=== PATIENT | male | born 1960 | race Caucasian/White ===

== ENCOUNTER 2025-01-12 12:11 | Outpatient (CLI) | payer OTHER, SELFPAY ==
--- NOTE | 2025-01-12 12:17 | XR_ITS ---
FINAL REPORT CLINICAL HISTORY: Left Hip Pain COMPARISON: None FINDINGS: 2 AP and frog leg views of the left hip were obtained. There is no acute fracture or dislocation. There is advanced degenerative joint disease of the left hip. Soft tissues are unremarkable. IMPRESSION: Advanced degenerative joint disease of the left hip. Reviewed, Interpreted and Dictated by Karina Ward MD Transcribed by Yara Washington Authenticated and . [facility]
== END 2025-01-12 23:59 | disposition home or self-care (01) ==
PROVIDERS: Visit Provider Physician Assistant Surgical
DX: M16.12 Unilateral primary osteoarthritis, left hip (principal)
CPT/HCPCS: 73502

== ENCOUNTER 2025-01-14 11:45 | Outpatient (CLI) | payer OTHER, SELFPAY ==
--- NOTE | 2025-01-14 12:10 | ECG_ITS ---
APPROVED REPORT Exam: Resting ECG HR:71 bpm ECG Measurements Heart Rate 71 AXES CA 194 P 52 QRSd 72 QRS -3 QT 352 T 40 QTc 374 Conclusion SINUS RHYTHM LOW QRS VOLTAGE IN PRECORDIAL LEADS [QRS DEFLECTION < 1.0 mV IN CHEST LEADS] BORDERLINE ECG UNCONFIRMED REPORT Electronically signed by : Quang Grajeda MD 01/15/2025 08:35:34
== END 2025-01-14 23:59 | disposition home or self-care (01) ==
LOC: PREOP 11:47
PROVIDERS: Visit Provider Orthopaedic Surgery
DX: M25.552 Pain in left hip (principal); R94.31 Abnormal electrocardiogram [ECG] [EKG]
CPT/HCPCS: 93005

== ENCOUNTER 2025-01-16 08:29 | Day surgery (SDC) | payer OTHER, SELFPAY ==
[2025-01-14 13:05] VITALS: BMI 34.8
[2025-01-16 09:03] VITALS: BP 138/83; PULSE 83; RESP 17; TEMP 36.8; O2SAT 95
--- NOTE | 2025-01-16 09:24 | EXP.ANES.CKL ---
[facility] Disclaimer: The information contained in this section may have been updated after the patient was seen, as this information can be updated by other users. Medical History BPH (benign prostatic hyperplasia) Surgical History History of colonoscopy Hx of cholecystectomy H/O vasectomy Family History Other Family history of CVA Family history of cancer Social History Smoking Status: Never smoker alcohol intake: never substance use type: unknown current occupational status: employed Travel in the last 8 weeks?: Inside the [place] [facility] Anesthesia Checklist Patient Identification Patient Identification: Arm Band and Verbal (Name & ) Structural Data Admitted From: Home Planned Operative Procedure/s: hip injection Consent for Planned Operative Procedure(s) Verified: Yes Verified Documents: Surgical Consent and History and Physical NPO Status Verified Time NPO: 00:00 Additional verifications Anesthesia Reactions: No Hx Blood Transfusions: No Blood Transfusion Reaction: No Airway Assessment Mallampati Score:: Class II Neurological Assessment Level of Consciousness: Awake, Alert and Appropriate Hx Seizures: No Anesthesia Plan Anesthesia Risk discussed: Yes Anesthesia Plan: Verified ASA Class: I Anesthesia Type: MAC
[2025-01-16] MEDS: TRIAMCINOLONE ACET 40MG/ML VIAL 80 MG (11:11)
[2025-01-16] MEDS: LIDOCAINE 1% 10ML MDV 10 ML (11:12)
--- NOTE | 2025-01-16 11:19 | XR_ITS ---
FINAL REPORT CLINICAL HISTORY: HIP INJECTION IN OR 0.1 MIN 2.64 mGy FINDINGS: FLUOROSCOPY LESS THAN 1 HOUR HISTORY: Fluoroscopy guidance. Fluoroscopic guidance was provided for left hip injection in the OR. A single spot film was obtained. A total of 0.1 minutes of fluoroscopy time were used. Total DAP: 2.64 mGy IMPRESSION: As above. Reviewed, Interpreted and Dictated by Karina Ward MD Transcribed by Sandra Young Authenticated and . [facility]
[2025-01-16] MEDS: IOPAMIDOL-370 (76%);100ML BOTTLE 50 ML IV (11:20)
[2025-01-16 11:21] VITALS: BP 108/70; PULSE 61; RESP 16; TEMP 36.3; O2SAT 95
--- NOTE | 2025-01-16 11:26 | EXP.OP.NOTE ---
Date of procedure: 01/16/25 Pre-op Diagnosis:: Left hip osteoarthritis Post-op Diagnosis:: Same Procedure performed:: Left hip injection with arthrogram x-ray guidance for needle placement Surgeon:: Black Cid DO Anesthesia: MAC Estimated blood loss (mL): 0 Operative findings:: See dictation severe osteoarthritis left hip Operative note:: Patient notified preoperatively. Left hip marked with yes my initials. Transferred operative suite. Placed on the radiolucent operating table. Given sedation. Left hip was then prepped and draped normal sterile fashion. Once prepped and draped final operative timeout performed to identify proper patient procedure and extremity. Everyone involved the case agreed. Is no counter indication beginning. X-rays brought into identify the hip joint. There was severe osteoarthritis of the hip present. The hip joint was identified. 18-gauge needle was used with proper trajectory into the hip capsule. Arthrogram was performed to confirm needle placement within the hip capsule. Once confirmed injection of 80 mg Kenalog 3 cc 1% lidocaine injected into the hip after aspiration was performed needle removed. Band-Aid placed. Patient waken sedation taken recovery stable condition. Condition: stable Disposition: PACU Complications:: None apparent
[2025-01-16 11:31] VITALS: BP 121/76; PULSE 65; RESP 18; O2SAT 95
[2025-01-16 11:41] VITALS: BP 111/74; PULSE 64; RESP 18; O2SAT 95
[2025-01-16 11:51] VITALS: BP 137/80; PULSE 64; RESP 18; O2SAT 95
== END 2025-01-16 11:57 | disposition home or self-care (01) ==
PROVIDERS: Visit Provider Orthopaedic Surgery
PROC: 3E0U3GC Introduction of Other Therapeutic Substance into Joints, Percutaneous Approach (ICD-10-PCS; CPT 20610; principal; 2025-01-16 10:15)
DX: M16.12 Unilateral primary osteoarthritis, left hip (principal); N40.0 Benign prostatic hyperplasia without lower urinary tract symptoms; Z88.5 Allergy status to narcotic agent; Z79.899 Other long term (current) drug therapy
CPT/HCPCS: 27095; 73502; J2003; J2704; J3301; Q9967